=== PATIENT | male | born 1975 | race Caucasian/White ===

== ENCOUNTER 2017-07-10 05:43 | Day surgery (SDC) | payer BC ==
[~2017-07-10] VITALS: Ht 182.9 cm; Wt 153.3 kg
[2017-07-10] MEDS ORDERED: LIDOCAINE 1% PF 2 ML VIAL. ID PRN ×2 (06:03→07:00)
[2017-07-10] MEDS ORDERED: IV RINGERS,LACTATED 1000ML 1,000 ML IV SCH ×2 (06:03→07:00)
[2017-07-10] MEDS ORDERED: BUPIVACAINE-EPI 0.25%-1:200000 50 ML VIAL. ONE (06:07)
[2017-07-10] MEDS ORDERED: fentaNYL PF VIAL 100 MCG/2 ML VIAL IV PRN ×3 (06:15→07:00)
[2017-07-10] MEDS ORDERED: MIDAZOLAM HCL/PF 2 MG/2 ML VIAL. IV PRN (06:15)
[2017-07-10] MEDS ORDERED: LISI10TA2 PO (06:19)
[2017-07-10] MEDS ORDERED: METF500T4 PO (06:20)
[2017-07-10] MEDS ORDERED: HYDROmorphone 2 MG/ML VIAL IV PRN (07:00)
[2017-07-10] MEDS ORDERED: ONDANSETRON PF 4 MG/2 ML VIAL. IV PRN (07:00)
[2017-07-10] MEDS ORDERED: PROCHLORPERAZINE 10 MG/2 ML VIAL. IV PRN (07:00)
[2017-07-10] MEDS ORDERED: ONDANSETRON PF 4 MG/2 ML VIAL. ONE (07:42)
[2017-07-10] MEDS ORDERED: LIDOCAINE 2% PF Vial for OR 5 ML VIAL. ONE (07:42)
[2017-07-10] MEDS ORDERED: MIDAZOLAM HCL/PF 2 MG/2 ML VIAL. ONE (07:42)
[2017-07-10] MEDS ORDERED: DEXAMETHASONE SOD PHOS 20 MG/5 ML VIAL. ONE (07:42)
[2017-07-10] MEDS ORDERED: fentaNYL PF VIAL 100 MCG/2 ML VIAL ONE ×2 (07:42→08:22)
[2017-07-10] MEDS ORDERED: ROCURONIUM 100 MG/10 ML VIAL. ONE (07:43)
[2017-07-10] MEDS ORDERED: SUCCINYLCHOLINE 200 MG/10 ML VIAL. ONE (07:43)
[2017-07-10] MEDS ORDERED: PHENYLEPHRINE 10 MG/ML VIAL. ONE (08:21)
[2017-07-10] MEDS ORDERED: NEOSTIGMINE 10 MG/10 ML VIAL. ONE (08:41)
[2017-07-10] MEDS ORDERED: GLYCOPYRROLATE 1 MG/5 ML VIAL. ONE (08:42)
--- NOTE | 2017-07-10 09:24 | PDOC4 ---
Operative Note Operative Note Date: 07/10/2017 Preoperative diagnosis: Incarcerated umbilical hernia recurrent Postoperative diagnosis: Same Procedure: Robotic-assisted laparoscopic ventral hernia repair with mesh and removal of previous mesh Surgeon: Sergio Specimen: Old mesh Dictation: Patient is a 42-year-old male who had a umbilical hernia repaired several years ago has had some issues with infected suture which had to be removed and now has a recurrent bulge with pain in this area. The procedure of robotic-assisted laparoscopic umbilical hernia repair with mesh was explained to the patient in detail risks benefits were also discussed including bleeding infection injury to intra-abdominal contents possibly necessitating further or open operations. The patient seemed understanding gave both verbal and written consent to have the procedure performed. Patient was taken to the operating room placed in the supine position general anesthesia was initiated once patient was asleep and intubated his abdomen was prepped and draped in the usual sterile fashion using ChloraPrep. An area in the left upper quadrant was injected with quarter percent Marcaine with epinephrine small incision was made 11 blade scalpel and a 5 mm Visiport was placed under direct visualization into the abdomen creating a pneumoperitoneum. Complete Zeccoata camera was placed within the abdomen was inspected there was noted a small umbilical hernia with mesh that was only slightly attached to the anterior abdominal wall with some incarcerated omentum. At this time 8-1/2 mm da Shaun port was placed in the left mid abdomen and a second port was placed in the left lower abdomen as well as a third port in the right upper abdomen. The da Shaun robot was brought in and docked all the ports and the surgeon went to the robotic console using a grasper and Endo Yeison scissors the omentum was reduced from the hernia defect as well as the previous mesh was taken down with sharp dissection. The hernia defect was then closed with a 2-0V lock nonabsorbable suture and using ventral light ST mesh was placed over the hernia defect this was secured into place with a running 2-0V lock absorbable suture. As this complete surgeon returned to the operative field the da Shaun robot was undocked from all ports and removed from the surgical field using a 5 mm laparoscopic scope and a grasper the previous old mesh was grasped and removed from the mid left abdominal port. The pneumoperitoneum was reduced all ports removed the skin incisions were all closed 4 septic Monocryl Mastisol Steri-Strips and island dressings were applied. Patient was waken next made in the operating room taken recovery in stable condition all sponge instrument and needle counts listed as correct estimated blood loss 10 mL. BALAJI HUTCHINSON MD Jul 10, 2017 09:24
--- NOTE | 2017-07-10 09:25 | DISCH ---
DISCHARGE INSTRUCTIONS Condition on Discharge Condition on Discharge: Stable Activity After Discharge Activity Instructions for Disc: Avoid exertion Other activity instructions: No lifting >20lbs for 2 weeks Diet after Discharge Diet after Discharge: Regular Wound Incision Care Other wound/incision instructi: May shower in 24 hours Contacting the after DC Call your doctor for: If your condition worsens Follow-Up Follow up with: Dr Hutchinosn in 2 weeks BALAJI HUTCHINSON MD Jul 10, 2017 09:25
[2017-07-10] MEDS ORDERED: HYDR-971 PO (09:31)
[2017-07-10] MEDS: fentaNYL PF VIAL 100 MCG/2 ML VIAL IV PRN ×3 (09:43→10:30)
[2017-07-10] MEDS ORDERED: HYDROcodone/APAP 5/325MG 1 TAB TABLET PO PRN ×2 (09:45)
[2017-07-10] MEDS: MORPHINE SULFATE 2 MG/ML DISP.SYRIN. IV PRN ×2 (09:54→10:08)
[2017-07-10 11:15] VITALS: BP 122/49
--- NOTE | 2017-07-15 10:56 | PATHOLOGY ---
PATHOLOGY REPORT * * * * * * * * FINAL DIAGNOSIS: Robotic-assisted laparoscopic umbilical hernia repair: - Segment of mesh (Gross only). (JPM:mmoctavio; 07/15/2017) REPORT ELECTRONICALLY SIGNED BY: Chitra Ramirez M.D. DATE/TIME: 07/15/2017 10:56 * * * * * * * * GROSS PATHOLOGY: The specimen is received in formalin, labeled "Chitra Collins, and removed old mesh" and consists of synthetic mesh material partially surfaced by pink brown fibrous tissue with an overall size of 4.0 x 3.0 x 1.5 cm. Gross only. Gross photos taken. (KITTY; 07/10/2017) INITIAL CPT CODE(S): A; 58164 Professional services performed by [facility] [place] [address] Technical services performed by [facility] at [address] [place] [address]. SPECIMEN(S) RECEIVED: A.Removed old mesh CLINICAL HISTORY: Recurrent umbilical hernia PATIENT: CHITRA COLLINS /AGE: 906/13/1975 (Age: 42) PATIENT #: [id number] ALT CASE #: SPECIMEN COLLECTION DATE: 07/10/2017 SPECIMEN RECEIVED DATE: 07/10/2017 [facility] - [address] [place] [address] - PHONE: [phone] * * * END OF REPORT * * *
== END 2017-07-10 11:29 | disposition home or self-care (01) ==
LOC: SURG 05:43
PROVIDERS: ATTEND Surgery
DX: K42.0 Umbilical hernia with obstruction, without gangrene (principal); E66.9 Obesity, unspecified; I10 Essential (primary) hypertension; E11.9 Type 2 diabetes mellitus without complications; Z80.3 Family history of malignant neoplasm of breast; Z83.3 Family history of diabetes mellitus
CPT/HCPCS: 49653; 82962; C1781; J0330; J0690; J0780; J1100; J2250; J2270; J2405; J2710; J3010; J3490; J7120; J2001